=== PATIENT | female | born 1985 | race African-American/Black ===

== ENCOUNTER 2017-01-15 14:29 | Emergency (ER) | payer MEDICAID, OTHER ==
[~2017-01-15] VITALS: Ht 175.3 cm; Wt 118.0 kg
[~2017-01-15 14:29] MED LIST: ALBU8HFA4 IH; AMIT50TA3 PO; BACL10TA PO; BUTA1TAB PO; METO5TAB2 PO; PROM25 PO
[2017-01-15] MEDS ORDERED: DEXAMETHASONE SOD PHOS 4 MG/ML 5 ML VIAL IM ONE (17:30)
[2017-01-15] MEDS ORDERED: CefTRIAXone SODIUM 1 GM/VIAL IM ONE (17:30)
[2017-01-15] MEDS ORDERED: METO-296 PO (17:30)
[2017-01-15] MEDS ORDERED: LIDOCAINE HCL/PF 1% 2 ML VIAL IM ONE (17:30)
[2017-01-15 17:38] VITALS: BP 115/76
== END 2017-01-15 17:41 | disposition home or self-care (01) ==
LOC: EMS 14:31
DX: J18.9 Pneumonia, unspecified organism (principal); J45.909 Unspecified asthma, uncomplicated; Z91.010 Allergy to peanuts; Z91.018 Allergy to other foods
CPT/HCPCS: 71010; 96372; 99284; J0696; J1100; J3490